=== PATIENT | male | born 1935 | race Caucasian/White ===

== ENCOUNTER 2017-07-14 09:39 | Emergency (ER) | payer BC ==
[~2017-07-14] VITALS: Ht 180.3 cm; Wt 74.3 kg
[2017-07-14 09:47] VITALS: TEMP 36.5; Ht 180.3 cm; Wt 74.3 kg
--- NOTE | 2017-07-14 10:11 | EMERGENCY ROOM VISIT NOTE ---
History Report prepared by Carmela: Saji Verdugo Under the Supervision of: Dr. Anish Goodwin M.D. First contact with patient: 09:53 Chief Complaint: ARM PAIN Stated Complaint: FELL ON ICE/LEFT ARM HURTS History of Present Illness The patient is an 82 year old male who presents to the Emergency Room with complaints of constant, left arm and shoulder pain beginning two hours ago. The patient came to the emergency department following a fall that occurred two hours ago. He notes that he fell on ice and did hit the back of his head. The patient is on Plavix for his history of a-fib. The patient denies any headaches , neck pain, and denies losing consciousness following his fall. He also denies any back pain, abdominal pain, right arm pain, rib pain, and left shoulder pain with movement. He has a history of a torn ligament in his left shoulder. Source of History: patient Onset: 2 hours ago Position: shoulder (left), arm (left) Timing: constant Associated Symptoms: No LOC, No headache, No neck pain, No abdominal pain, No back pain Note: Denies: right arm pain, rib pain, left shoulder pain with movement Review of Systems See HPI for pertinent positives and negatives. A total of ten systems were reviewed and were otherwise negative. Past Medical & Surgical Medical Problems: (1) A-fib (2) Ligament tear of upper extremity Family History Patient reports no known family medical history. Social History Smoking Status: Former Smoker Marital Status: Occupation Status: retired Current/Historical Medications Scheduled Amlodipine Besylate (Norvasc), 5 MG PO DAILY Ajtvmdcng-Kjfrwvvqzkc-Xenuarl (Glucosamine Complex), 1 TAB PO DAILY Cholecalciferol (Vitamin D3), 1 TAB PO DAILY Clopidogrel (Plavix), 75 MG PO DAILY Fish Oil ([place]-3), 1 CAP PO BID Hydrochlorothiazide (Hctz), 50 MG PO DAILY Irbesartan (Irbesartan), 1 TAB PO DAILY Lutein-Zeaxanthin (Lutein), 20 MG PO DAILY Oyster Shell (Oyster Shell), 1 TAB PO DAILY Pantoprazole (Protonix), 20 MG PO BID Physical Exam Vital Signs Date Time Temp Pulse Resp B/P (MAP) Pulse Ox O2 Delivery O2 Flow Rate FiO2 07/14/17 12:21 78 18 152/84 98 Room Air 07/14/17 11:18 74 18 137/85 98 Room Air 07/14/17 09:47 36.5 75 16 147/94 99 Room Air Physical Exam Physical Exam GENERAL: He is oriented to person, place, and time. He appears well-developed and well-nourished. He does not appear distressed. ____ HENT: Exam performed. Head: Normocephalic and atraumatic. Right Ear: External ear normal. No mastoid tenderness. Left Ear: External ear normal. No mastoid tenderness. Mouth/Throat: The oropharynx is clear and moist. No trismus in the jaw. No dental abscesses or uvula swelling. No oropharyngeal exudate or tonsillar abscesses. ____ EYES: Conjunctivae and EOM are normal. Pupils are equal, round, and reactive to light. Right eye exhibits no discharge. Left eye exhibits no discharge. No scleral icterus. ____ NECK: Normal range of motion. Neck supple. No JVD present. No spinous process tenderness present. No carotid bruit present. No rigidity. No tracheal deviation and normal range of motion present. No Brudzinski's sign and no Kernig 's sign noted. ____ CV: Normal rate, regular rhythm, normal heart sounds and intact distal pulses. There is no peripheral edema. Palpable radial pulses bue. ____ PULM/CHEST: Effort normal and breath sounds normal. No respiratory distress. No stridor. He has no wheezes. He has no rales. Chest Wall: He exhibits no tenderness. ____ ABD: The abdomen is soft. Bowel sounds are normal. He has no distension. No mass is present. There is no tenderness. There is no rebound, no guarding, no Warren's sign and no tenderness at McBurney's point. Rovsig negative MUSC/SKEL: No cervical thoracic or lumbar spine tenderness. LUE: No pain on palpation over left clavicle. Full ROM of left shoulder. Tenderness to palpation of the proximal left humerus. Full ROM to the left elbow. No pain on palpation of left olecranon process. No pain on palpation of lateral and medial epicondyle. No pain of palpation of left snuffbox, but he does have pain over the base of the left first metacarpal. RUE: FROM no tenderness Pelvis stable B/l Motor and sensation intact in radial, median, and ulnar nerve distributions. Compartments softs b/l LYMPH: No cervical adenopathy. ____ NEURO: He is alert and oriented to person, place, and time. He has normal strength. No cranial nerve deficit or sensory deficit. Coordination and gait normal. GCS eye subscore is 4. GCS verbal subscore is 5. GCS motor subscore is 6. cerbellar tests wnl. ____ SKIN: Skin is warm and dry. He is not diaphoretic. ____ PSYCH: He has a normal mood and affect. His behavior is normal. Judgment and thought content normal. ____ Medical Decision & Procedures ER Provider Diagnostic Interpretation: Radiology results as stated below per my review and radiologist interpretation: CERVICAL SPINE W/O CLINICAL HISTORY: 82 years-old Male presenting with fall, fall backwards on ice, hit head, head and neck pain, left shoulder pain. TECHNIQUE: Multidetector CT of the cervical spine was performed without the use of intravenous contrast. IV contrast: None. A dose lowering technique was used consistent with the principles of ALARA (as low as reasonably achievable). COMPARISON: None. CT DOSE (mGy.cm): The estimated cumulative dose is 1000.57 mGy.cm. FINDINGS: Project Buyer topogram: Unremarkable. Straightening of normal cervical lordosis likely positional and related to multilevel degenerative changes. Disc osteophyte complexes noted at nearly every level. Vertebral bodies maintain normal height and alignment. Intervertebral disc height loss noted at several levels most severe at C3-4 and C5-6. Osseous neural foraminal narrowing also noted on the left at C3-4, on the right at C4-5, and mild bilaterally at C5-6. No significant posterior bony spurring. Lung apices clear. Paraspinal soft tissues within normal limits allowing for noncontrast technique. Atherosclerosis. IMPRESSION: 1. No acute osseous injury. 2. Multilevel degenerative changes. Electronically signed by: Michael Cheung M.D. 07/14/2017 10:56 AM Dictated Date/Time: 07/14/2017 10:51 AM CHEST 2 VIEWS ROUTINE CLINICAL HISTORY: 82 years-old Male presenting with fall, fell on ice. TECHNIQUE: PA and lateral views of the chest were obtained. COMPARISON: None. FINDINGS: Atherosclerosis of the aortic arch. Cardiac silhouette top normal in size. Left atrial appendage occlusion device noted. Lungs and pleural spaces clear. Degenerative changes of the thoracic spine. Postsurgical changes of the upper abdomen with suspected ventral hernia repair. Multiple surgical clips project over the epigastrium. Cholecystectomy clips noted. IMPRESSION: 1. No acute cardiopulmonary disease. Electronically signed by: Michael Cheung M.D. 07/14/2017 11:20 AM Dictated Date/Time: 07/14/2017 11:19 AM L HAND MIN 3 VIEWS ROUTINE CLINICAL HISTORY: 82 years-old Male presenting with fall. TECHNIQUE: Frontal, oblique, and lateral views of the left hand were obtained. COMPARISON: None. FINDINGS: Mild degenerative change at the trapezium-first metacarpal articulation. Mild degenerative changes also suggested at the distal interphalangeal joint of the second through fourth fingers. No acute fracture or malalignment. No radiographic soft tissue abnormality. IMPRESSION: 1. No acute osseous injury of the left hand. 2. Degenerative changes characteristic of osteoarthritis. Electronically signed by: Michael Cheung M.D. 07/14/2017 11:23 AM Dictated Date/Time: 07/14/2017 11:22 AM HEAD WITHOUT CONTRAST (CT) CLINICAL HISTORY: 82 years-old Male presenting with fall, fell backwards, hit head on ice. TECHNIQUE: Multidetector CT imaging of the head was performed without the use of intravenous contrast. IV contrast: None. A dose lowering technique was used consistent with the principles of ALARA (as low as reasonably achievable). COMPARISON: None. CT DOSE (mGy.cm): The estimated cumulative dose is 1000.57. FINDINGS: Project Buyer topogram: Unremarkable. Ventricles and sulci normal in size. Brain parenchyma normal in appearance with preserved willard-white differentiation. No mass effect or midline shift. No hemorrhage or acute territorial infarct. No extra-axial fluid collection. Paranasal sinuses and mastoid air cells clear. Calvarium intact. IMPRESSION: 1. No acute intracranial abnormality. L HUMERUS MIN 2 VIEWS ROUTINE CLINICAL HISTORY: 82 years-old Male presenting with fall pain over proximal humerus. TECHNIQUE: Frontal and lateral views of the left humerus were obtained COMPARISON: None. FINDINGS: No acute fracture or malalignment. No advanced degenerative change. No radiographic soft tissue abnormality. IMPRESSION: No acute osseous injury of the left humerus. Electronically signed by: Michael Cheung M.D. 07/14/2017 11:22 AM Dictated Date/Time: 07/14/2017 11:22 AM L SHOULDER MIN 2 VIEWS ROUTINE CLINICAL HISTORY: 82 years-old Male presenting with fall. TECHNIQUE: Internal rotation, external rotation, and Grashey views of the left shoulder were obtained. COMPARISON: None. FINDINGS: Glenohumeral and acromioclavicular joints congruent. Mild degenerative changes of both joints noted. No subluxation of the humeral head. Left clavicle intact. Visualized portion of the left hemithorax normal. No radiographic soft tissue abnormality. IMPRESSION: 1. No acute osseous injury of the left shoulder. 2. Mild degenerative changes of the glenohumeral and acromioclavicular joints. Electronically signed by: Michael Cheung M.D. 07/14/2017 11:22 AM Dictated Date/Time: 07/14/2017 11:21 AM L WRIST MIN 3 VIEWS ROUTINE CLINICAL HISTORY: 82 years-old Male presenting with fall. TECHNIQUE: Frontal, bilateral oblique, and lateral views of the left wrist were obtained. COMPARISON: None. FINDINGS: Osteophytosis and subchondral sclerosis evident at the trapezium-first metacarpal articulation. No other degenerative change. Radiocarpal articulation preserved. Osseous fragment along the dorsum visible on lateral radiograph. No radiographic soft tissue abnormality. IMPRESSION: 1. Suggestion of triquetral fracture. Correlate for point tenderness. 2. Degenerative changes at the trapezium-first metacarpal articulation characteristic of ostial arthritis. Electronically signed by: Michael Cheung M.D. 07/14/2017 11:30 AM Dictated Date/Time: 07/14/2017 11:29 AM ED Course 1001: The patient was evaluated in room B11B. A complete history and physical exam was performed. 1142: Vital signs stable, imaging within normal limits with exception of the wrist xray which showed triquetral fracture. Pt will be placed in volar splint and follow up with his orthopedic doctor in [place]. Short arm volar splint was placed on the right upper extremity made from fiberglass. Patient was neurovascularly intact after placement of splint. No paresthesias capillary refill less than 3 seconds. DISCHARGE - Plan of care discussed with patient and questions answered. The patient was given both verbal and printed discharge instructions. The patient verbalized understanding and ability to comply. The patient is to seek outpatient follow up as noted in the discharge instructions. The patient verbalized understanding and ability to comply. The patient is discharged in stable condition. The patient was instructed to return for worsening symptoms. Medical Decision Vital signs stable, imaging within normal limits with exception of the wrist xray which showed triquetral fracture. Pt will be placed in volar splint and follow up with his orthopedic doctor in [place]. Short arm volar splint was placed on the right upper extremity made from fiberglass. Patient was neurovascularly intact after placement of splint. No paresthesias capillary refill less than 3 seconds. DISCHARGE - Plan of care discussed with patient and questions answered. The patient was given both verbal and printed discharge instructions. The patient verbalized understanding and ability to comply. The patient is to seek outpatient follow up as noted in the discharge instructions. The patient verbalized understanding and ability to comply. The patient is discharged in stable condition. The patient was instructed to return for worsening symptoms. Head Trauma GCS Score: 15 Medication Reconcilliation Current Medication List: was personally reviewed by me Blood Pressure Screening Patient's blood pressure: Elevated blood pressure Blood pressure disposition: Elevated BP felt to be situational Impression Primary Impression: Wrist fracture, closed Scribe Attestation The scribe's documentation has been prepared under my direction and personally reviewed by me in its entirety. I confirm that the note above accurately reflects all work, treatment, procedures, and medical decision making performed by me. The chart was completed utilizing [employer] Speech voice recognition software. Grammatical errors, random word insertions, pronoun errors, and incomplete sentences are an occasional consequence of this system due to software limitations, ambient noise, and hardware issues. Any formal questions or concerns about the content, text, or information contained within the body of this dictation should be directly addressed to the physician for clarification. Departure Information Dispostion Home / Self-Care Forms HOME CARE DOCUMENTATION FORM, IMPORTANT VISIT INFORMATION Patient Instructions ED Fx Wrist General, ED Splint Care Emily Executive Caddie Additional Instructions Follow-up with your orthopedist at your home in [place] Problem Qualifiers Primary Impression: Wrist fracture, closed Encounter type: initial encounter Laterality: left Qualified Codes: S62.102A - Fracture of unspecified carpal bone, left wrist, initial encounter for closed fracture
[2017-07-14] MEDS ORDERED: CLOP1TAB15 PO (10:50)
[2017-07-14] MEDS ORDERED: PRT/20 PO (10:50)
[2017-07-14] MEDS ORDERED: CHOL1000 PO (10:50)
[2017-07-14] MEDS ORDERED: HCTZ (10:50)
[2017-07-14] MEDS ORDERED: IRBE1TAB50 PO (10:50)
[2017-07-14] MEDS ORDERED: OMEG10007 PO (10:50)
[2017-07-14] MEDS ORDERED: OYST500T12 PO (10:50)
[2017-07-14] MEDS ORDERED: BOSW1TAB3 PO (10:50)
[2017-07-14] MEDS ORDERED: LUTE15CA PO (10:50)
[2017-07-14] MEDS ORDERED: AMLO5TAB2 PO (10:50)
[2017-07-14] MEDS ORDERED: HYDR50TA3 PO (10:50)
--- NOTE | 2017-07-14 10:58 | DIAGNOSTIC IMAGING REPORT ---
CERVICAL SPINE W/O CLINICAL HISTORY: 82 years-old Male presenting with fall, fall backwards on ice, hit head, head and neck pain, left shoulder pain. TECHNIQUE: Multidetector CT of the cervical spine was performed without the use of intravenous contrast. IV contrast: None. A dose lowering technique was used consistent with the principles of ALARA (as low as reasonably achievable). COMPARISON: None. CT DOSE (mGy.cm): The estimated cumulative dose is 1000.57 mGy.cm. FINDINGS: Word Processor Technician topogram: Unremarkable. Straightening of normal cervical lordosis likely positional and related to multilevel degenerative changes. Disc osteophyte complexes noted at nearly every level. Vertebral bodies maintain normal height and alignment. Intervertebral disc height loss noted at several levels most severe at C3-4 and C5-6. Osseous neural foraminal narrowing also noted on the left at C3-4, on the right at C4-5, and mild bilaterally at C5-6. No significant posterior bony spurring. Lung apices clear. Paraspinal soft tissues within normal limits allowing for noncontrast technique. Atherosclerosis. IMPRESSION: 1. No acute osseous injury. 2. Multilevel degenerative changes. Electronically signed by: Michael Cheung M.D. 07/14/2017 10:56 AM Dictated Date/Time: 07/14/2017 10:51 AM
--- NOTE | 2017-07-14 11:00 | DIAGNOSTIC IMAGING REPORT ---
HEAD WITHOUT CONTRAST (CT) CLINICAL HISTORY: 82 years-old Male presenting with fall, fell backwards, hit head on ice. TECHNIQUE: Multidetector CT imaging of the head was performed without the use of intravenous contrast. IV contrast: None. A dose lowering technique was used consistent with the principles of ALARA (as low as reasonably achievable). COMPARISON: None. CT DOSE (mGy.cm): The estimated cumulative dose is 1000.57. FINDINGS: Cloth Bin Packer topogram: Unremarkable. Ventricles and sulci normal in size. Brain parenchyma normal in appearance with preserved willard-white differentiation. No mass effect or midline shift. No hemorrhage or acute territorial infarct. No extra-axial fluid collection. Paranasal sinuses and mastoid air cells clear. Calvarium intact. IMPRESSION: 1. No acute intracranial abnormality. Electronically signed by: Michael Cheung M.D. 07/14/2017 10:58 AM Dictated Date/Time: 07/14/2017 10:56 AM
--- NOTE | 2017-07-14 11:22 | DIAGNOSTIC IMAGING REPORT ---
CHEST 2 VIEWS ROUTINE CLINICAL HISTORY: 82 years-old Male presenting with fall, fell on ice. TECHNIQUE: PA and lateral views of the chest were obtained. COMPARISON: None. FINDINGS: Atherosclerosis of the aortic arch. Cardiac silhouette top normal in size. Left atrial appendage occlusion device noted. Lungs and pleural spaces clear. Degenerative changes of the thoracic spine. Postsurgical changes of the upper abdomen with suspected ventral hernia repair. Multiple surgical clips project over the epigastrium. Cholecystectomy clips noted. IMPRESSION: 1. No acute cardiopulmonary disease. Electronically signed by: Michael Cheung M.D. 07/14/2017 11:20 AM Dictated Date/Time: 07/14/2017 11:19 AM
--- NOTE | 2017-07-14 11:23 | DIAGNOSTIC IMAGING REPORT ---
L SHOULDER MIN 2 VIEWS ROUTINE CLINICAL HISTORY: 82 years-old Male presenting with fall. TECHNIQUE: Internal rotation, external rotation, and Grashey views of the left shoulder were obtained. COMPARISON: None. FINDINGS: Glenohumeral and acromioclavicular joints congruent. Mild degenerative changes of both joints noted. No subluxation of the humeral head. Left clavicle intact. Visualized portion of the left hemithorax normal. No radiographic soft tissue abnormality. IMPRESSION: 1. No acute osseous injury of the left shoulder. 2. Mild degenerative changes of the glenohumeral and acromioclavicular joints. Electronically signed by: Michael Cheung M.D. 07/14/2017 11:22 AM Dictated Date/Time: 07/14/2017 11:21 AM
--- NOTE | 2017-07-14 11:24 | DIAGNOSTIC IMAGING REPORT ---
L HUMERUS MIN 2 VIEWS ROUTINE CLINICAL HISTORY: 82 years-old Male presenting with fall pain over proximal humerus. TECHNIQUE: Frontal and lateral views of the left humerus were obtained COMPARISON: None. FINDINGS: No acute fracture or malalignment. No advanced degenerative change. No radiographic soft tissue abnormality. IMPRESSION: No acute osseous injury of the left humerus. Electronically signed by: Michael Cheung M.D. 07/14/2017 11:22 AM Dictated Date/Time: 07/14/2017 11:22 AM
--- NOTE | 2017-07-14 11:25 | DIAGNOSTIC IMAGING REPORT ---
L HAND MIN 3 VIEWS ROUTINE CLINICAL HISTORY: 82 years-old Male presenting with fall. TECHNIQUE: Frontal, oblique, and lateral views of the left hand were obtained. COMPARISON: None. FINDINGS: Mild degenerative change at the trapezium-first metacarpal articulation. Mild degenerative changes also suggested at the distal interphalangeal joint of the second through fourth fingers. No acute fracture or malalignment. No radiographic soft tissue abnormality. IMPRESSION: 1. No acute osseous injury of the left hand. 2. Degenerative changes characteristic of osteoarthritis. Electronically signed by: Michael Cheung M.D. 07/14/2017 11:23 AM Dictated Date/Time: 07/14/2017 11:22 AM
--- NOTE | 2017-07-14 11:32 | DIAGNOSTIC IMAGING REPORT ---
L WRIST MIN 3 VIEWS ROUTINE CLINICAL HISTORY: 82 years-old Male presenting with fall. TECHNIQUE: Frontal, bilateral oblique, and lateral views of the left wrist were obtained. COMPARISON: None. FINDINGS: Osteophytosis and subchondral sclerosis evident at the trapezium-first metacarpal articulation. No other degenerative change. Radiocarpal articulation preserved. Osseous fragment along the dorsum visible on lateral radiograph. No radiographic soft tissue abnormality. IMPRESSION: 1. Suggestion of triquetral fracture. Correlate for point tenderness. 2. Degenerative changes at the trapezium-first metacarpal articulation characteristic of ostial arthritis. Electronically signed by: Michael Cheung M.D. 07/14/2017 11:30 AM Dictated Date/Time: 07/14/2017 11:29 AM
[2017-07-14 12:21] VITALS: BP 152/84; PULSE 78; O2SAT 98
== END 2017-07-14 12:46 | disposition home or self-care (01) ==
LOC: C.EDB 09:42
DX: S62.102A Fracture of unspecified carpal bone, left wrist, initial encounter for closed fracture (principal); M25.512 Pain in left shoulder; I48.91 Unspecified atrial fibrillation; Z79.02 Long term (current) use of antithrombotics/antiplatelets; Z79.899 Other long term (current) drug therapy; Z87.828 Personal history of other (healed) physical injury and trauma; Z87.891 Personal history of nicotine dependence; W00.9XXA Unspecified fall due to ice and snow, initial encounter